=== PATIENT | female | born 1990 | race Two or more races ===

== ENCOUNTER 2022-08-17 18:30 | Observation (INO) | payer MEDICAID ==
[~2022-08-17] VITALS: Ht 160 cm; Wt 122.5 kg
[2022-08-17] MEDS ORDERED: ACETAMINOPHEN 500 MG TAB PO ONE (20:15)
[2022-08-17] MEDS ORDERED: D5W/LACTATED RINGERS 1,000 ML IV ONE (20:15)
[2022-08-17] MEDS ORDERED: ONDANSETRON HCL 4 MG/2 ML VIAL IV ONE (20:15)
[2022-08-17] MEDS ORDERED: LACTATED RINGER'S 1,000 ML IV ONE (21:15)
[2022-08-17] MEDS ORDERED: PREN-96 PO (22:23)
[2022-08-17] MEDS ORDERED: ZOFR4T PO (22:23)
== END 2022-08-17 22:43 | disposition home or self-care (01) ==
LOC: UNDOADMOB 18:30 → LDRP 18:30
PROVIDERS: ADMIT Obstetrics & Gynecology; ATTEND Obstetrics & Gynecology
DX: O21.2 Late vomiting of pregnancy (principal); O26.893 Other specified pregnancy related conditions, third trimester; R51.9 Headache, unspecified; O34.63 Maternal care for abnormality of vagina, third trimester; N89.8 Other specified noninflammatory disorders of vagina; Z3A.31 31 weeks gestation of pregnancy
CPT/HCPCS: 59025; 81002; 96360; 96361; 96374; G0378; J2405

== ENCOUNTER 2022-10-16 09:08 | Observation (INO) | payer MEDICAID ==
[~2022-10-16 09:08] MED LIST: PREN-96 PO; ZOFR4T PO
== END 2022-10-16 10:38 | disposition home or self-care (01) ==
LOC: LDRP 09:08
PROVIDERS: ADMIT Obstetrics & Gynecology; ATTEND Obstetrics & Gynecology
DX: O48.0 Post-term pregnancy (principal); O62.9 Abnormality of forces of labor, unspecified; Z3A.40 40 weeks gestation of pregnancy
CPT/HCPCS: 59025; 76818; 81002; 94760; G0378

== ENCOUNTER 2022-10-18 10:53 | Observation (INO) | payer MEDICAID | END 2022-10-18 14:49 | disposition home or self-care (01) | LOC: LDRP 13:03 → UNDOADMOB 13:03 → LDRP 13:06 | PROVIDERS: ADMIT Obstetrics & Gynecology; ATTEND Obstetrics & Gynecology | DX: O48.0 Post-term pregnancy (principal); O62.9 Abnormality of forces of labor, unspecified; Z3A.40 40 weeks gestation of pregnancy | CPT/HCPCS: 59025; 76818; 81002; 94760; G0378 ==

== ENCOUNTER 2022-10-20 09:33 | Inpatient (IN) | payer MEDICAID ==
[~2022-10-20] VITALS: Ht 160 cm; Wt 127.0 kg
[2022-10-20 10:26] LABS: Fern Testing Positive
[2022-10-20] MEDS ORDERED: fentaNYL CITRATE 100 MCG/2 ML VL IV ONE (11:00)
[2022-10-20] MEDS ORDERED: ePHEDrine SULFATE 50 MG/ML AMP IV ONE (11:00)
[2022-10-20] MEDS ORDERED: LIDOCAINE HCL 2 %PF INJ 10ML AMP IJ ONE (11:00)
[2022-10-20] MEDS ORDERED: WITCH HAZEL-GLYCERIN PAD TOP PRN (11:00)
[2022-10-20] MEDS ORDERED: LACTATED RINGER'S 1,000 ML IV ONE (11:00)
[2022-10-20] MEDS ORDERED: SODIUM CHLORIDE 0.9% 500 ML IV PRN (11:00)
[2022-10-20] MEDS ORDERED: ROPIVACAINE HCL 200 ML EPI SCH (11:00)
[2022-10-20] MEDS ORDERED: PROMETHAZINE HCL 25 MG/ML 1ML IV PRN (11:00)
[2022-10-20] MEDS ORDERED: BUTORPHANOL TARTRATE 2 MG/1 ML VIAL IV PRN ×2 (11:00)
[2022-10-20] MEDS ORDERED: DERMOPLAST 60ML BOTTLE TOP PRN (11:00)
[2022-10-20] MEDS ORDERED: PHISODERM TOP SOLN 240ML BTL TOP PRN (11:00)
[2022-10-20] MEDS ORDERED: LIDOCAINE 2%HCL (LOCAL ANESTH.) INJ 20ML MDV IJ PRN (11:00)
[2022-10-20] MEDS ORDERED: fentaNYL 400mCg/200ml W ROPIVA 200 ML EPI SCH (11:00)
[2022-10-20] MEDS ORDERED: NALOXONE HCL 0.4 MG/ML VIAL IV ONE (11:00)
[2022-10-20] MEDS ORDERED: LACTATED RINGER'S 500 ML IV ONE (11:00)
[2022-10-20 11:31] LABS: Basophils # (auto) 0 10 ^3/uL (0-0.2); Basophils % (auto) 0.3 % (0.0-2.0); Eosinophils # (auto) 0.1 10 ^3/uL (0-0.8); Eosinophils % (auto) 0.7 % (0.0-7.0); Hematocrit 36.3 % (36.0-46.0); Hemoglobin 12.1 g/dL (12.2-16.2); Lymphocytes # (auto) 1.8 10 ^3/uL (0.4-5.4); Lymphocytes % (auto) 17.4 % (10.0-50.0); Mean Corpuscular Hemoglobin 29.6 pg (28.0-32.0); Mean Corpuscular Hgb Conc. 33.3 g/dL (32.0-36.0); Mean Corpuscular Volume 88.8 fL (80.0-100.0); Monocytes # (auto) 0.6 10 ^3/uL (0-1.3); Monocytes % (auto) 5.6 % (0.0-12.0); Neutrophils # (auto) 7.9 10 ^3/uL (1.6-8.6); Nucleated Red Blood Cells % 0.1 %; Red Blood Cells 4.09 10^6/uL (4.0-5.20); Red Cell Distribution Width 15.1 % (11.8-14.3); White Blood Cell 10.4 10^3/uL (4.4-10.8)
[2022-10-20 11:53] LABS: INR 0.96 (0.9-1.15); Partial Thromboplastin Time 30.1 SEC (24.5-34.5); Prothrombin Time 10.1 sec (9.3-11.8)
[2022-10-20 12:01] LABS: Potassium 3.9 mmol/L (3.5-5.1)
[2022-10-20 12:10] LABS: Albumin 2.3 g/dL (3.4-5.0); BUN/Creatinine Ratio 29.5 (10.0-20.0); Bilirubin, Total 0.2 mg/dL (0.2-1.0); Calcium 8.3 mg/dL (8.5-10.1); Total Protein 6.9 g/dL (6.4-8.2)
[2022-10-20] MEDS ORDERED: LACT. RINGERS/OXYTOCIN 20UNITS 1,000 ML IV SCH (12:15)
[2022-10-20] MEDS ORDERED: TERBUTALINE SULFATE 1 MG/ML 1ML VIAL SC PRN (12:15)
[2022-10-20] MEDS ORDERED: LACT. RINGERS/OXYTOCIN 20UNITS 500 ML IV ONE ×2 (12:15→12:45)
[2022-10-20] MEDS: LACTATED RINGER'S 1,000 ML IV SCH ×2 (12:40→14:44)
[2022-10-20 12:47] LABS: Urine Bacteria NONE SEEN /hpf (None Seen); Urine Blood 2+ /uL (Negative); Urine Clarity Clear (Clear); Urine Color Yellow (Yellow); Urine Mucus FEW (None Seen); Urine Protein, UAD Negative (Negative); Urine Specific Gravity 1.024 (1.001-1.035); Urine Urobilinogen Normal (Negative); Urine WBC 3 /hpf (0 - 5)
[2022-10-20 13:07] LABS: Alcohol, Urine < 3.0 mg/dL (0-10); Amphetamine Screen, Urine NEGATIVE (NEGATIVE); Barbiturate Scree,Urine NEGATIVE (NEGATIVE); Benzodiazephine Screen, Urine NEGATIVE (NEGATIVE); Cannabinoid Screen, Urine NEGATIVE (NEGATIVE); Cocaine Screen, Urine NEGATIVE (NEGATIVE); Opiate Scree,Urine NEGATIVE (NEGATIVE); Phencyclidine Screen, Urine NEGATIVE (NEGATIVE)
[2022-10-20] MEDS ORDERED: TRANEXAMIC ACID 1,000 MG in SODIUM CHL 0.9% 100 ML IV ONE (15:00)
[2022-10-20] MEDS ORDERED: miSOPROStol 100 mcg TAB SL PRN (15:00)
[2022-10-20] MEDS ORDERED: miSOPROStol 100 mcg TAB PR PRN (15:00)
[2022-10-20] MEDS ORDERED: CARBOPROST TROMETHAMINE 250 MCG/1ML VIAL IM PRN (15:00)
[2022-10-20] MEDS ORDERED: METHYLERGONOVINE MALEATE 0.2 MG/ML AMP IM PRN (15:00)
[2022-10-20] MEDS ORDERED: METHYLERGONOVINE MALEATE 0.2 MG/ML AMP IM ONE (15:09)
[2022-10-20] MEDS ORDERED: ONDANSETRON ODT 4 MG TAB PO PRN (17:00)
[2022-10-20] MEDS ORDERED: ACETAMINOPHEN 325 MG TAB PO PRN (17:00)
[2022-10-20] MEDS: IBUPROFEN 600 MG TAB PO PRN (18:56)
[2022-10-20 19:05] VITALS: BP 127/66; PULSE 83; RESP 18; TEMP 98.4; O2SAT 97
[2022-10-20] MEDS ORDERED: DOCUSATE SOD 100 MG CAP PO SCH (22:00)
[2022-10-20 23:01] VITALS: BP 106/55; PULSE 85; RESP 18; TEMP 97.8; O2SAT 98
[2022-10-21 03:00] VITALS: BP 112/64; PULSE 67; RESP 18; TEMP 97.8; O2SAT 98
[2022-10-21 05:08] LABS: RPR Non Reactive (Non Reactive)
[2022-10-21 06:58] VITALS: BP 108/68; PULSE 71; RESP 17; TEMP 98.2; O2SAT 100
[2022-10-21 07:42] LABS: Basophils # (auto) 0 10 ^3/uL (0-0.2); Basophils % (auto) 0.5 % (0.0-2.0); Eosinophils # (auto) 0.1 10 ^3/uL (0-0.8); Eosinophils % (auto) 1.2 % (0.0-7.0); Hematocrit 35.1 % (36.0-46.0); Hemoglobin 11.6 g/dL (12.2-16.2); Lymphocytes # (auto) 2.8 10 ^3/uL (0.4-5.4); Lymphocytes % (auto) 26.2 % (10.0-50.0); Mean Corpuscular Hemoglobin 30.4 pg (28.0-32.0); Monocytes # (auto) 0.6 10 ^3/uL (0-1.3); Monocytes % (auto) 5.4 % (0.0-12.0); Neutrophils # (auto) 7.1 10 ^3/uL (1.6-8.6); Neutrophils % (auto) 66.7 % (37.0-80.0); Nucleated Red Blood Cells % 0.3 %; Red Blood Cells 3.82 10^6/uL (4.0-5.20); Red Cell Distribution Width 15.6 % (11.8-14.3); White Blood Cell 10.7 10^3/uL (4.4-10.8)
[2022-10-21] MEDS: IBUPROFEN 600 MG TAB PO PRN (08:27)
[2022-10-21] MEDS ORDERED: PREN-96 PO (08:56)
[2022-10-21] MEDS ORDERED: IBU600T PO (08:56)
[2022-10-21] MEDS ORDERED: ACET-1882 PO (08:56)
[2022-10-21] MEDS ORDERED: ROPIVACAINE HCL 200 ML EPI SCH (11:00)
[2022-10-21 11:10] VITALS: BP 105/62; PULSE 73; RESP 16; TEMP 98; O2SAT 99
[2022-10-22 20:06] LABS: Treponema pallidum Ab (FTA-Ab) Non Reactive (Non Reactive)
== END 2022-10-21 17:30 | disposition home or self-care (01) | DRG 560 ==
LOC: LDRP 09:33 → OBSVTOIN 10:15 → LDRP 10:16
PROVIDERS: ADMIT Obstetrics & Gynecology; ATTEND Obstetrics & Gynecology
PROC: 10E0XZZ Delivery of Products of Conception, External Approach (ICD-10-PCS; principal; 2022-10-20)
PROC: 10H07YZ Insertion of Other Device into Products of Conception, Via Natural or Artificial Opening (ICD-10-PCS; 2022-10-20)
PROC: 0HQ9XZZ Repair Perineum Skin, External Approach (ICD-10-PCS; 2022-10-20)
PROC: 3E0R3BZ Introduction of Anesthetic Agent into Spinal Canal, Percutaneous Approach (ICD-10-PCS; 2022-10-20)
PROC: 00HU33Z Insertion of Infusion Device into Spinal Canal, Percutaneous Approach (ICD-10-PCS; 2022-10-20)
DX: O70.0 First degree perineal laceration during delivery (principal); Z37.0 Single live birth; E66.01 Morbid (severe) obesity due to excess calories; Z3A.40 40 weeks gestation of pregnancy; O99.214 Obesity complicating childbirth
CPT/HCPCS: 36415; 59025; 59409; 62282; 76818; 80053; 80307; 81001; 84112; 85025; 85610; 85730; 86592; 86850; 86900; 86901; 94760; 94762; 96360; 96361; 96365; 96366; 96372; G0378; J2590